=== PATIENT | male | born 1980 | race African-American/Black ===

== ENCOUNTER 2024-12-11 00:59 | Emergency (ER) | payer SELFPAY ==
[2024-12-11] MEDS ORDERED: Lisinopril 20 MG TAB ONE (01:25)
== END 2024-12-11 01:30 ==
LOC: EEVIPCON 00:59 → NAV ERS 00:59
DX: I10 Essential (primary) hypertension (principal); F17.210 Nicotine dependence, cigarettes, uncomplicated; Z55.6 Problems related to health literacy
CPT/HCPCS: 99283